=== PATIENT | female | born 1950 | race Caucasian/White ===

== ENCOUNTER 2018-09-10 12:52 | Emergency (ER) | payer BC, OTHER ==
[~2018-09-10] VITALS: Ht 154.9 cm; Wt 92.5 kg
[2018-09-10] MEDS ORDERED: NORCO 5-325 TA1 EACH PO (15:34)
[2018-09-10 16:01] VITALS: BP 165/72
== END 2018-09-10 16:03 | disposition home or self-care (01) ==
LOC: ER 12:52
DX: S83.8X1A Sprain of other specified parts of right knee, initial encounter (principal); S93.491A Sprain of other ligament of right ankle, initial encounter; M51.26 Other intervertebral disc displacement, lumbar region; M25.551 Pain in right hip; G89.29 Other chronic pain; Z88.5 Allergy status to narcotic agent; Z88.0 Allergy status to penicillin; Z88.6 Allergy status to analgesic agent; Z96.641 Presence of right artificial hip joint; W18.39XA Other fall on same level, initial encounter; Y92.89 Other specified places as the place of occurrence of the external cause; Y93.89 Activity, other specified; Y99.8 Other external cause status